=== PATIENT | female | born 1990 | race Caucasian/White ===

== ENCOUNTER 2022-07-01 17:10 | Emergency (ER) ==
[~2022-07-01] VITALS: Ht 157.5 cm; Wt 58.4 kg
[2022-07-01 17:11] VITALS: BP 137/84
[2022-07-01 18:04] LABS: BASO % 0.2 % (0.0-1.0); EOS # 0.1 10^3/uL (0.0-0.5); EOS % 0.7 % (0.0-3.0); HEMATOCRIT 35.7 % (36.0-47.0); HEMOGLOBIN 11.5 g/dl (12.0-15.5); LYMPH # 2.6 10^3/uL (1.5-5.0); LYMPH % 31.3 % (24.0-44.0); MEAN CORPUSCULAR HEMOGLOBIN 27.6 pg (27.0-33.0); MEAN CORPUSCULAR HGB CONC 32.2 g/dl (32.0-36.5); MEAN CORPUSCULAR VOLUME 85.6 fl (80.0-96.0); MONO # 0.6 10^3/uL (0.0-0.8); MONO % 7.7 % (2.0-8.0); PLATELET COUNT, AUTOMATED 295 10^3/uL (150-450); RED BLOOD COUNT 4.17 10^6/uL (4.00-5.40); WHITE BLOOD COUNT 8.4 10^3/uL (4.0-10.0)
[2022-07-01 18:30] LABS: BLOOD UREA NITROGEN 18 MG/DL (9-23); CALCIUM LEVEL 9.4 MG/DL (8.5-10.1); CARBON DIOXIDE LEVEL 25 MMOL/L (20-31); CHLORIDE LEVEL 105 MMOL/L (98-107); CREATININE FOR GFR 0.59 MG/DL (0.55-1.30); GLOMERULAR FILTRATION RATE > 60.0 (>60); GLUCOSE, FASTING 79 MG/DL (60-100); POTASSIUM SERUM 4.3 MMOL/L (3.5-5.1); SODIUM LEVEL 137 MMOL/L (136-145)
== END 2022-07-01 20:28 | disposition left against medical advice (07) ==
LOC: M ED 17:10
DX: Z53.21 Procedure and treatment not carried out due to patient leaving prior to being seen by health care provider (principal)

== ENCOUNTER 2022-07-02 09:03 | Emergency (ER) | payer OTHER ==
[~2022-07-02] VITALS: Ht 157.5 cm; Wt 58.4 kg
[2022-07-02 11:46] LABS: HEMATOCRIT 39.5 % (36.0-47.0); HEMOGLOBIN 12.3 g/dl (12.0-15.5); MEAN CORPUSCULAR HEMOGLOBIN 26.9 pg (27.0-33.0); MEAN CORPUSCULAR HGB CONC 31.1 g/dl (32.0-36.5); MEAN CORPUSCULAR VOLUME 86.4 fl (80.0-96.0); PLATELET COUNT, AUTOMATED 315 10^3/uL (150-450); RED BLOOD COUNT 4.57 10^6/uL (4.00-5.40); WHITE BLOOD COUNT 7.1 10^3/uL (4.0-10.0)
[2022-07-02 13:44] VITALS: BP 137/75
== END 2022-07-02 13:51 | disposition home or self-care (01) ==
LOC: M ED 09:03
DX: O26.899 Other specified pregnancy related conditions, unspecified trimester (principal); R10.9 Unspecified abdominal pain; Z3A.01 Less than 8 weeks gestation of pregnancy

== ENCOUNTER → 2022-07-04 | Outpatient (CLI) | payer MEDICARE, OTHER ==
[~2022-07-04] MED LIST: GNP28TAB2 PO
== END ==
LOC: M LAB 08:51
PROVIDERS: ATTEND Physician Assistant
DX: O26.891 Other specified pregnancy related conditions, first trimester (principal); R10.9 Unspecified abdominal pain; Z3A.00 Weeks of gestation of pregnancy not specified

== ENCOUNTER 2022-08-05 08:46 | Emergency (ER) | payer MEDICARE, OTHER ==
[~2022-08-05] VITALS: Ht 160 cm; Wt 59.7 kg
[2022-08-05] MEDS ORDERED: GNP28TAB2 PO (08:58)
[2022-08-05 09:38] LABS: BASO % 0.1 % (0.0-1.0); EOS # 0.1 10^3/uL (0.0-0.5); EOS % 0.8 % (0.0-3.0); HEMATOCRIT 38.1 % (36.0-47.0); HEMOGLOBIN 12.4 g/dl (12.0-15.5); LYMPH # 1.6 10^3/uL (1.5-5.0); MEAN CORPUSCULAR HEMOGLOBIN 28.6 pg (27.0-33.0); MEAN CORPUSCULAR HGB CONC 32.5 g/dl (32.0-36.5); MONO # 0.6 10^3/uL (0.0-0.8); MONO % 6.4 % (2.0-8.0); NEUTROPHILS # 6.4 10^3/uL (1.5-8.5); NEUTROPHILS % 74.1 % (36.0-66.0); PLATELET COUNT, AUTOMATED 266 10^3/uL (150-450); RED BLOOD COUNT 4.33 10^6/uL (4.00-5.40); WHITE BLOOD COUNT 8.7 10^3/uL (4.0-10.0)
[2022-08-05 10:00] LABS: BLOOD UREA NITROGEN 8 MG/DL (9-23); CALCIUM LEVEL 9.5 MG/DL (8.5-10.1); CARBON DIOXIDE LEVEL 26 MMOL/L (20-31); CHLORIDE LEVEL 103 MMOL/L (98-107); CREATININE FOR GFR 0.51 MG/DL (0.55-1.30); GLOMERULAR FILTRATION RATE > 60.0 (>60); GLUCOSE, FASTING 76 MG/DL (60-100); POTASSIUM SERUM 4.3 MMOL/L (3.5-5.1); SODIUM LEVEL 136 MMOL/L (136-145)
[2022-08-05 10:33] LABS: HCG, SERUM QUANTITATIVE 160644.1 MIU/ML (<4.2)
[2022-08-05 13:45] VITALS: BP 120/71; TEMP 96.8; O2SAT 97
== END 2022-08-05 13:51 | disposition home or self-care (01) ==
LOC: M ED 08:46
DX: O20.8 Other hemorrhage in early pregnancy (principal); O26.891 Other specified pregnancy related conditions, first trimester; M54.50 Low back pain, unspecified; Z3A.09 9 weeks gestation of pregnancy

== ENCOUNTER 2022-09-21 10:06 | Emergency (ER) | payer MEDICARE, OTHER ==
[~2022-09-21] VITALS: Ht 162.6 cm; Wt 63.7 kg
[2022-09-21 12:16] VITALS: BP 104/60; TEMP 98.1; O2SAT 99
== END 2022-09-21 16:07 | disposition home or self-care (01) ==
LOC: M ED 10:06
DX: S76.812A Strain of other specified muscles, fascia and tendons at thigh level, left thigh, initial encounter (principal); W50.0XXA Accidental hit or strike by another person, initial encounter; Z3A.15 15 weeks gestation of pregnancy; Z85.12 Personal history of malignant neoplasm of trachea

== ENCOUNTER 2022-12-28 12:12 | Outpatient (CLI) | payer MEDICARE, OTHER ==
[~2022-12-28] VITALS: Ht 162.6 cm; Wt 75.5 kg
[2022-12-28 12:39] VITALS: BP 118/55
[2022-12-28 12:50] VITALS: BP 124/67
== END 2022-12-28 13:41 | disposition home or self-care (01) ==
LOC: M LDO 12:12
PROVIDERS: ATTEND Advanced Practice Midwife
DX: O26.893 Other specified pregnancy related conditions, third trimester (principal); R25.2 Cramp and spasm; Z3A.29 29 weeks gestation of pregnancy; O32.1XX0 Maternal care for breech presentation, not applicable or unspecified; R10.2 Pelvic and perineal pain; O99.283 Endocrine, nutritional and metabolic diseases complicating pregnancy, third trimester; E86.0 Dehydration
CPT/HCPCS: 59025; G0463

== ENCOUNTER 2023-01-14 10:23 | Outpatient (CLI) | payer MEDICARE, OTHER ==
[~2023-01-14] VITALS: Ht 162.6 cm; Wt 76.9 kg
[2023-01-14 10:36] VITALS: O2SAT 98
[2023-01-14] MEDS ORDERED: HOME MED LIST COMPLETE! XX SCH (10:45)
[2023-01-14 10:49] VITALS: BP 102/59; O2SAT 96
[2023-01-14 10:50] VITALS: O2SAT 97
[2023-01-14 14:07] LABS: HEMATOCRIT 33.8 % (36.0-47.0); MEAN CORPUSCULAR HEMOGLOBIN 29.9 pg (27.0-33.0); MEAN CORPUSCULAR HGB CONC 32.5 g/dl (32.0-36.5); MEAN CORPUSCULAR VOLUME 91.8 fl (80.0-96.0); PLATELET COUNT, AUTOMATED 196 10^3/uL (150-450); RED BLOOD COUNT 3.68 10^6/uL (4.00-5.40); WHITE BLOOD COUNT 10.8 10^3/uL (4.0-10.0)
[2023-01-14 14:23] VITALS: BP 132/71; O2SAT 97
[2023-01-14 14:23] LABS: INR 1.06; PARTIAL THROMBOPLASTIN TIME 26.7 SECONDS (24.8-34.2); PROTHROMBIN TIME 13.4 SECONDS (12.5-14.5)
[2023-01-14] MEDS ORDERED: TERBUTALINE SULFATE 1 MG/ML 1ML VIAL SC ONE (15:00)
[2023-01-14] MEDS ORDERED: FOSFOMYCIN TROMETHAMINE 3 GM POWDER PACKET (MONUROL) PO ONE (15:00)
[2023-01-14 15:38] VITALS: BP 119/67
== END 2023-01-14 15:58 | disposition home or self-care (01) ==
LOC: M LDO 10:23
PROVIDERS: ATTEND Obstetrics & Gynecology
DX: O47.03 False labor before 37 completed weeks of gestation, third trimester (principal); O23.43 Unspecified infection of urinary tract in pregnancy, third trimester; Z3A.32 32 weeks gestation of pregnancy
CPT/HCPCS: 59025; 76815; 76820; 81001; 85027; 85384; 85610; 85730; 87086; 96372; G0463; J3105

== ENCOUNTER 2023-02-17 20:06 | Outpatient (CLI) | payer MEDICARE, OTHER ==
[~2023-02-17] VITALS: Ht 160 cm; Wt 81.7 kg
[2023-02-17 20:20] VITALS: BP 155/83
[2023-02-17 20:37] VITALS: BP 141/85
[2023-02-17] MEDS ORDERED: TERBUTALINE SULFATE 1 MG/ML 1ML VIAL SC ONE (23:55)
[2023-02-18 01:03] VITALS: BP 139/81
== END 2023-02-18 01:12 | disposition home or self-care (01) ==
LOC: M LDO 20:06
PROVIDERS: ATTEND Obstetrics & Gynecology
DX: O47.03 False labor before 37 completed weeks of gestation, third trimester (principal); Z3A.36 36 weeks gestation of pregnancy; O99.343 Other mental disorders complicating pregnancy, third trimester; F43.10 Post-traumatic stress disorder, unspecified; F41.9 Anxiety disorder, unspecified
CPT/HCPCS: 59025; 96372; G0463; J3105

== ENCOUNTER 2023-02-26 06:59 | Inpatient (IN) | payer OTHER ==
[2023-02-26] VITALS (10 sets, daily range): BP systolic 109–135; BP diastolic 69–85; TEMP 97.9; O2SAT 95–100
[~2023-02-26] VITALS: Ht 160 cm; Wt 81.9 kg
[2023-02-26] MEDS ORDERED: LACTATED RINGER'S 1000 ML IV STA ×2 (07:11)
[2023-02-26] MEDS ORDERED: LR 1,000 ML IV SCH ×2 (07:15→11:50)
[2023-02-26] MEDS ORDERED: BICITRA 30ML SOLN UDC PO ONE ×2 (07:15→07:45)
[2023-02-26] MEDS ORDERED: HOME MED LIST COMPLETE! XX SCH (07:35)
[2023-02-26] MEDS ORDERED: ceFAZolin SOD 2 GM in IV 1 EA IV ONE (07:45)
[2023-02-26 08:26] LABS: HEMOGLOBIN 11.2 g/dl (12.0-15.5); MEAN CORPUSCULAR HEMOGLOBIN 28.9 pg (27.0-33.0); MEAN CORPUSCULAR VOLUME 90.4 fl (80.0-96.0); PLATELET COUNT, AUTOMATED 158 10^3/uL (150-450); RED BLOOD COUNT 3.87 10^6/uL (4.00-5.40); WHITE BLOOD COUNT 8.1 10^3/uL (4.0-10.0)
[2023-02-26] MEDS ORDERED: PHENYLephrine 500MCG 5ML (100MCG/ML) SYRINGE As Ordered ONE (08:45)
[2023-02-26] MEDS ORDERED: OXYTOCIN INJ 10UNITS/ML 1ML VIAL As Ordered ONE (08:45)
[2023-02-26] MEDS ORDERED: ONDANSETRON 4MG 2ML VIAL As Ordered ONE (08:45)
[2023-02-26] MEDS ORDERED: MORPHINE PRES-FREE INJ 10 MG/10 ML VIAL As Ordered ONE (08:46)
[2023-02-26] MEDS ORDERED: ACETAMINOPHEN 1000MG 100ML IV BAG As Ordered ONE (10:16)
[2023-02-26] MEDS ORDERED: KETOROLAC 60MG 2ML VIAL As Ordered ONE (10:20)
[2023-02-26 10:42] LABS: CORD GAS ABE V -1.1; CORD GAS HCO3 V 25.5 MMOL/L; CORD GAS O2 SAT V 59.1 %; CORD GAS PCO2 V 50.8 mmHg; CORD GAS PH V 7.319 UNITS; CORD GAS SBC V 22.7 MMOL/L; CORD GAS TCO2 V 27.1 MMOL/L
[2023-02-26 10:43] LABS: CORD GAS ABE A -1.9; CORD GAS O2 SAT A 16.7 %; CORD GAS PCO2 A 59.1 mmHg; CORD GAS PH A 7.262 UNITS; CORD GAS PO2 A 10.8 mmHg; CORD GAS SBC A 21.3 MMOL/L; CORD GAS TCO2 A 27.9 MMOL/L
[2023-02-26] MEDS ORDERED: OXYTOCIN DRIP 30 UNITS in IV 1 EA IV SCH (11:10)
[2023-02-26] MEDS ORDERED: ONDANSETRON 4MG 2ML VIAL IV PRN ×2 (11:10→11:50)
[2023-02-26] MEDS: LR 1,000 ML IV SCH ×2 (11:10→16:32)
[2023-02-26] MEDS ORDERED: RHOGAM 300MCG (1500IU) INJ IM SCH (11:10)
[2023-02-26] MEDS ORDERED: METOCLOPRAMIDE INJ 10MG/2ML VIAL IV PRN ×2 (11:10→11:50)
[2023-02-26] MEDS ORDERED: SIMETHICONE 80MG CHEW TAB PO PRN (11:10)
[2023-02-26] MEDS ORDERED: METHYLERGONOVINE MALEATE 0.2MG/ML 1ML VIAL IM PRN (11:10)
[2023-02-26] MEDS ORDERED: oxyCODONE 5MG TAB PO PRN ×3 (11:10→11:50)
[2023-02-26] MEDS ORDERED: OXYTOCIN 30UNITS IN 0.9% NaCl 500ML IV BAG As Ordered ONE (11:36)
[2023-02-26] MEDS ORDERED: fentaNYL 100 MCG/2 ML INJECTION IV PRN (11:50)
[2023-02-26] MEDS ORDERED: NALOXONE INJ 0.4MG/1ML VIAL IV PRN ×2 (11:50)
[2023-02-26] MEDS ORDERED: **NOTE PATIENT COMMENT** MISC XX SCH (11:50)
[2023-02-26] MEDS ORDERED: diphenhydrAMINE 50MG/ML VIAL IV PRN (11:50)
[2023-02-26] MEDS: SLF 3 ML SYR IV SCH ×2 (12:00→19:31)
[2023-02-26] MEDS: DOCUSATE SODIUM 100MG CAPSULE PO SCH ×2 (13:46→19:30)
[2023-02-26] MEDS: PRENATAL VITAMINS CHEWABLE TABLET PO SCH (13:46)
[2023-02-26] MEDS: ACETAMINOPHEN 500 MG TAB PO SCH ×2 (17:31→23:13)
[2023-02-26] MEDS: METHYLERGONOVINE MALEATE 0.2 MG TAB PO SCH ×2 (17:31→23:48)
[2023-02-26] MEDS: KETOROLAC 30 MG/ML 1ML VIAL IV SCH ×2 (17:32→23:13)
[2023-02-27 02:00] VITALS: BP 112/62; O2SAT 95
[2023-02-27] MEDS: SLF 3 ML SYR IV SCH (04:00)
[2023-02-27] MEDS: KETOROLAC 30 MG/ML 1ML VIAL IV SCH (05:09)
[2023-02-27] MEDS: ACETAMINOPHEN 500 MG TAB PO SCH ×4 (05:09→22:54)
[2023-02-27 05:52] VITALS: BP 107/69; O2SAT 95
[2023-02-27] MEDS: METHYLERGONOVINE MALEATE 0.2 MG TAB PO SCH (05:59)
[2023-02-27 07:13] LABS: HEMATOCRIT 33.9 % (36.0-47.0); HEMOGLOBIN 10.9 g/dl (12.0-15.5); MEAN CORPUSCULAR HEMOGLOBIN 29.2 pg (27.0-33.0); MEAN CORPUSCULAR HGB CONC 32.2 g/dl (32.0-36.5); MEAN CORPUSCULAR VOLUME 90.9 fl (80.0-96.0); PLATELET COUNT, AUTOMATED 144 10^3/uL (150-450); RED BLOOD COUNT 3.73 10^6/uL (4.00-5.40); WHITE BLOOD COUNT 13.9 10^3/uL (4.0-10.0)
[2023-02-27] MEDS: PRENATAL VITAMINS CHEWABLE TABLET PO SCH (08:26)
[2023-02-27] MEDS: DOCUSATE SODIUM 100MG CAPSULE PO SCH ×2 (08:26→21:20)
[2023-02-27 10:00] VITALS: BP 123/74; O2SAT 97
[2023-02-27] MEDS ORDERED: METOCLOPRAMIDE INJ 10MG/2ML VIAL IV PRN (11:50)
[2023-02-27] MEDS: IBUPROFEN 800 MG TAB PO SCH ×2 (12:54→21:20)
[2023-02-27 14:00] VITALS: BP 122/66; O2SAT 97
[2023-02-27 18:00] VITALS: BP 122/64; O2SAT 98
[2023-02-27 22:00] VITALS: BP 127/69; O2SAT 97
[2023-02-28 02:00] VITALS: BP 122/69; O2SAT 97
[2023-02-28] MEDS: IBUPROFEN 800 MG TAB PO SCH ×2 (05:02→12:24)
[2023-02-28] MEDS: ACETAMINOPHEN 500 MG TAB PO SCH ×2 (05:02→12:24)
[2023-02-28 06:18] VITALS: BP 110/62; O2SAT 97
[2023-02-28] MEDS ORDERED: MEASLES,MUMPS,RUBELLA VACCINE INJ (MMR-II) SC.IMMUN ONE (09:00)
[2023-02-28] MEDS ORDERED: INFLUENZA QUADRIVALENT PF VACCINE 0.5ML SYRINGE IM.IMMUN ONE (09:00)
[2023-02-28] MEDS: PRENATAL VITAMINS CHEWABLE TABLET PO SCH (09:00)
[2023-02-28] MEDS: DOCUSATE SODIUM 100MG CAPSULE PO SCH (09:08)
== END 2023-02-28 13:39 | disposition home or self-care (01) | DRG 773 ==
LOC: M LDI 06:59 → M OBS 12:35
PROVIDERS: ADMIT Obstetrics & Gynecology; ATTEND Obstetrics & Gynecology
PROC: 10D00Z1 Extraction of Products of Conception, Low, Open Approach (ICD-10-PCS; principal; 2023-02-26 09:30)
DX: O69.2XX0 Labor and delivery complicated by other cord entanglement, with compression, not applicable or unspecified (principal); Z37.0 Single live birth; Z3A.38 38 weeks gestation of pregnancy